=== PATIENT | male | born 1955 | race Caucasian/White ===

== ENCOUNTER → 2016-11-10 | Outpatient (CLI) | payer MEDICAID | LOC: FIMAGING 15:18 | PROVIDERS: ATTEND Orthopaedic Surgery Sports Medicine | DX: I82.491 Acute embolism and thrombosis of other specified deep vein of right lower extremity (principal) ==

== ENCOUNTER → 2016-11-28 | Outpatient (CLI) | payer MEDICAID ==
[~2016-11-28] MED LIST: IOPAMIDOL (ISOVUE 370) 100 ML BTL IV ONE
== END ==
LOC: FIMAGING 08:37
PROVIDERS: ATTEND Physician Assistant
DX: B18.2 Chronic viral hepatitis C (principal); K80.20 Calculus of gallbladder without cholecystitis without obstruction; J98.09 Other diseases of bronchus, not elsewhere classified
CPT/HCPCS: Q9967

== ENCOUNTER 2016-12-15 11:47 | Emergency (ER) | payer MEDICAID ==
[2016-12-15 12:31] LABS: % IMMATURE GRANULYOCYTES 0.5 % (0.0-1.1); ABSOLUTE IMMATURE GRANULOCYTES 0.06 10^3/uL (0.00-0.10); ADD DIFF? NO; ADD MORPH? NO; ADD SCAN? NO; ATYPICAL LYMPHOCYTE FLAG 0 (0-99); FRAGMENT RBC FLAG 0 (0-99); HEMATOCRIT 42.9 % (40.0-51.0); HEMOGLOBIN 13.9 g/dL (13.7-17.5); LEFT SHIFT FLG 0 (0-99); LIPEMIA HEMOLYSIS FLAG 80 (0-99); MEAN CELL HEMOGLOBIN 28.3 pg (27.9-34.1); MEAN CELL HEMOGLOBIN CONCENTR. 32.4 g/dL (32.4-36.7); MEAN CELL VOLUME 87.2 fL (81.5-99.8); MEAN PLATELET VOLUME 9.5 fL (8.7-11.7); PLATELET CLUMPS FLAG 0 (0-99); PLATELET COUNT 313 10^3/uL (150-400); RED BLOOD CELL COUNT 4.92 10^6/uL (4.40-6.38); RED CELL DISTRIBUTION WIDTH 15.9 % (11.5-15.2)
--- NOTE | 2016-12-15 12:32 | EDPHY ---
H & P Stated Complaint: Coughed up blood this morning;on coumadin;hx PEs Time Seen by Provider: 12/15/16 12:31 HPI/ROS: CHIEF COMPLAINT: Hemoptysis HISTORY OF PRESENT ILLNESS: The patient presents to the ED with a 1 day history of scant hemoptysis. The patient reports he has been sick with an upper respiratory infection for the past several days. The patient is currently on Coumadin for a DVT in his leg. He has been on Coumadin for approximately 2 weeks. The patient did have a CT scan of his chest after his diagnosis of DVT which demonstrated no evidence of pulmonary emboli. The patient did report a history of a fever at home several days ago. The patient denies any abdominal pain, vomiting or diarrhea. He denies significant dyspnea. He has no history of exertional chest pain. REVIEW OF SYSTEMS: A comprehensive 10 point review of systems is otherwise negative aside from elements mentioned in the history of present illness. Source: Patient Exam Limitations: No limitations - Personal History Current Tetanus Diphtheria and Acellular Pertussis (TDAP): Yes - Medical/Surgical History Hx Asthma: No Hx Chronic Respiratory Disease: No Hx Diabetes: No Hx Cardiac Disease: No Hx Renal Disease: No Hx Cirrhosis: No Hx Alcoholism: No Hx HIV/AIDS: No Hx Splenectomy or Spleen Trauma: No Other PMH: arthritis. thyroid. PS. PEs - Social History Smoking Status: Former smoker - Physical Exam Exam: General Appearance: Alert, no distress Eyes: Pupils equal and round no pallor or injection ENT, Mouth: Mucous membranes moist Respiratory: There are no retractions, lungs are clear to auscultation Cardiovascular: Regular rate and rhythm Gastrointestinal: Abdomen is soft and nontender, no masses, bowel sounds normal Neurological: A&O, normal motor function, normal sensory exam, normal cranial nerves Skin: Warm and dry, no rashes Musculoskeletal: Neck is supple nontender Extremities: symmetrical, full range of motion Constitutional: Initial Vital Signs Temperature (C) 36.4 C 12/15/16 11:48 Heart Rate 98 12/15/16 11:48 Respiratory Rate 16 12/15/16 11:48 Blood Pressure 134/81 H 12/15/16 11:48 O2 Sat (%) 94 12/15/16 11:48 O2 Delivery Mode Room Air Allergies/Adverse Reactions: acetaminophen Allergy (Mild, Verified 12/15/16 11:48) Rash Home Medications: Medication Instructions Recorded Bupropion HCl [Wellbutrin Xl] 300 mg PO DAILY 11/16/15 Ipratropium/Albuterol [Combivent 1 inh IH BID 11/16/15 Respimat Inhal Cushing(*)] Levothyroxine [Synthroid 125 mcg 125 mcg PO DAILY06 11/16/15 (*)] Albuterol [Ventolin Hfa Inhaler] 2 puffs IH QID PRN #1 mdi 12/15/16 Amoxicillin/Clavulanate Pot 875 mg PO BID #20 tab 12/15/16 [Augmentin 875 mg tablet] Melatonin [Melatonin 3 MG (*)] 3 mg PO HS 12/15/16 Warfarin Sodium [Coumadin 5MG (*)] 5 mg PO DAILY16 12/15/16 Medical Decision Making - Diagnostics Imaging Results: Imaging Impressions Chest X-Ray 12/15/16 12:27 Impression: 1. Moderate left lower lobe pneumonia. ED Course/Re-evaluation: I reviewed the patient's past medical records. The patient had a CT scan performed approximately 2 weeks ago which demonstrated no evidence of a PE. The patient has scant hemoptysis in the setting of an upper respiratory infection. The patient's chest x-ray does demonstrate evidence of pneumonia. The patient is afebrile, non hypoxemic non tachycardic and normotensive. The patient is appropriate for outpatient management. The patient will be started on Augmentin. He does understand to return to the ED for markedly worsening symptoms or other concerns. The patient can continue his regular outpatient dose of Coumadin given his mild hemoptysis. Differential Diagnosis: Differential diagnosis considered includes supratherapeutic anticoagulation, pneumonia, pulmonary embolism, bronchitis - Data Points Laboratory Results: Laboratory Results 12/15/16 12:15 12/15/16 12:15 12/15/16 12/15/16 12/15/16 12:15 12:15 12:15 WBC 13.04 10^3/uL H 10^3/uL (3.80-9.50) RBC 4.92 10^6/uL 10^6/uL (4.40-6.38) Hgb 13.9 g/dL g/dL (13.7-17.5) Hct 42.9 % % (40.0-51.0) MCV 87.2 fL fL (81.5-99.8) MCH 28.3 pg pg (27.9-34.1) MCHC 32.4 g/dL g/dL (32.4-36.7) RDW 15.9 % H % (11.5-15.2) Plt Count 313 10^3/uL 10^3/uL (150-400) MPV 9.5 fL fL (8.7-11.7) Neut % (Auto) 81.9 % H % (39.3-74.2) Lymph % (Auto) 7.4 % L % (15.0-45.0) [place] % (Auto) 7.6 % % (4.5-13.0) Eos % (Auto) 2.1 % % (0.6-7.6) Baso % (Auto) 0.5 % % (0.3-1.7) Nucleat RBC Rel Count 0.0 % % (0.0-0.2) Absolute Neuts (auto) 10.69 10^3/uL H 10^3/uL (1.70-6.50) Absolute Lymphs (auto) 0.96 10^3/uL L 10^3/uL (1.00-3.00) Absolute Monos (auto) 0.99 10^3/uL H 10^3/uL (0.30-0.80) Absolute Eos (auto) 0.27 10^3/uL 10^3/uL (0.03-0.40) Absolute Basos (auto) 0.07 10^3/uL 10^3/uL (0.02-0.10) Absolute Nucleated RBC 0.00 10^3/uL 10^3/uL (0-0.01) Immature Gran % 0.5 % % (0.0-1.1) Immature Gran # 0.06 10^3/uL 10^3/uL (0.00-0.10) PT 26.6 SEC H SEC (12.0-15.0) INR 2.42 H (0.83-1.16) Sodium 140 mEq/L mEq/L (134-144) Potassium 4.1 mEq/L mEq/L (3.5-5.2) Chloride 100 mEq/L mEq/L (97-110) Carbon Dioxide 28 mEq/l mEq/l (22-31) Anion Gap 12 mEq/L mEq/L (8-16) BUN 16 mg/dL mg/dL (7-23) Creatinine 1.0 mg/dL mg/dL (0.7-1.3) Estimated GFR > 60 Glucose 107 mg/dL H mg/dL (70-100) Calcium 9.1 mg/dL mg/dL (8.5-10.4) Total Bilirubin 1.1 mg/dL mg/dL (0.1-1.4) AST 42 IU/L IU/L (17-59) ALT 62 IU/L IU/L (21-72) Alkaline Phosphatase 100 IU/L IU/L (38-126) Total Protein 7.4 g/dL g/dL (6.3-8.2) Albumin 4.0 g/dL g/dL (3.5-5.0) Departure - Departure Disposition: Home, Routine, Self-Care Clinical Impression: Pneumonia Condition: Good Instructions: Community Acquired Pneumonia (ED) Additional Instructions: 1. Please continue your regular medications. Please begin Augmentin for pneumonia. 2. Please follow up as scheduled with your primary care provider. 3. Please return to the ED for markedly worsening symptoms, difficulty breathing , significant increase in the blood in your sputum or other concerns. 4. Please use albuterol inhaler up to every 4 hours as needed. Referrals: Maame Davis [Primary Care Provider] - As per Instructions
[2016-12-15 12:40] LABS: ALANINE AMINOTRANSFERASE 62 IU/L (21-72); ALKALINE PHOSPHATASE 100 IU/L (38-126); ASPARTATE AMINOTRANSFERASE 42 IU/L (17-59); BILIRUBIN,TOTAL 1.1 mg/dL (0.1-1.4); CALCIUM 9.1 mg/dL (8.5-10.4); CARBON DIOXIDE 28 mEq/l (22-31); CHLORIDE 100 mEq/L (97-110); GLOMERULAR FILTRATION RATE > 60; GLUCOSE 107 mg/dL (70-100); INR 2.42 (0.83-1.16); PROTIME(PATIENT) 26.6 SEC (12.0-15.0); SODIUM 140 mEq/L (134-144); TOTAL PROTEIN 7.4 g/dL (6.3-8.2)
[2016-12-15 12:53] LABS: ANION GAP 12 mEq/L (8-16); POTASSIUM 4.1 mEq/L (3.5-5.2)
[2016-12-15 13:17] VITALS: RESP 18; O2SAT 92
[2016-12-15 13:48] VITALS: BP 133/82; PULSE 81; TEMP 97.7
== END 2016-12-15 13:48 | disposition home or self-care (01) ==
DX: J18.9 Pneumonia, unspecified organism (principal); Z79.01 Long term (current) use of anticoagulants; Z87.891 Personal history of nicotine dependence

== ENCOUNTER 2017-01-06 05:05 | Observation (INO) | payer MEDICAID ==
[2017-01-06] MEDS ORDERED: LIDOCAINE 1% 2 ML INJ ONE (06:18)
[2017-01-06] MEDS ORDERED: LR 1,000 ML IV ONE (06:20)
[2017-01-06] MEDS ORDERED: LIDOCAINE 1% 5 ML SDV ID PRN (06:20)
[2017-01-06 06:56] LABS: INR 2.28 (0.83-1.16); PROTIME(PATIENT) 25.3 SEC (12.0-15.0)
[2017-01-06] MEDS ORDERED: MIDAZOLAM 2 MG/2 ML VIAL ONE (07:06)
[2017-01-06] MEDS ORDERED: fentaNYL 100 MCG/2 ML INJ ONE ×3 (07:12→10:18)
[2017-01-06] MEDS ORDERED: PROPOFOL 200 MG/20 ML VIAL ONE ×2 (07:12→08:03)
[2017-01-06] MEDS ORDERED: LIDO/EPI 1% **Not for Epidural 20 ML MDV ONE (07:13)
[2017-01-06] MEDS ORDERED: LIDOCAINE 2% 5 ML SDV ONE (07:14)
[2017-01-06] MEDS ORDERED: ROCURONIUM 50 MG/5 ML VIAL ONE (07:14)
[2017-01-06] MEDS ORDERED: DEXAMETHASONE 4 MG/ML VIAL ONE (07:45)
[2017-01-06] MEDS ORDERED: RANITIDINE 50 MG/2 ML VIAL ONE (09:24)
[2017-01-06] MEDS ORDERED: ONDANSETRON 4 MG/2 ML VIAL ONE (09:26)
[2017-01-06] MEDS ORDERED: SUGAMMADEX SODIUM 200 MG/2 ML VIAL IVP ONE (09:26)
--- NOTE | 2017-01-06 09:35 | POSTOPPROG ---
Post Op Note Date of Operation: 01/06/17 Surgeon: Philippe Spear Anesthesia: GET(General Endotracheal) Pre-op Diagnosis: L TM Perforation Post-op Diagnosis: L TM Perforation Indication: L TM Perforation Procedure: LEFT TYMPANOPLASTY Findings: 40% perf Inf/Abcess present in the surg proc area at time of surgery?: No Depth: Deep Incisional (Fascial) EBL: 50-100 Complications: NONE Specimen(s): NONE
[2017-01-06] MEDS: oxyCODONE IR 5 MG TAB PO PRN ×2 (10:48→19:32)
[2017-01-06] MEDS: HEPARIN 5,000 UNIT/0.5 ML SYR SC SCH ×2 (14:44→21:08)
--- NOTE | 2017-01-06 19:53 | GOP ---
[f rep st] OPERATIVE REPORT DATE OF OPERATION: 01/06/2017 SURGEON: Philippe Spear MD ANESTHESIA: General. PREOPERATIVE DIAGNOSIS: Left tympanic membrane perforation. POSTOPERATIVE DIAGNOSIS: Left tympanic membrane perforation. PROCEDURE PERFORMED: Tympanoplasty with underlay cartilage graft. FINDINGS: A 40% anterior central tympanic membrane perforation. SPECIMENS: None. ESTIMATED BLOOD LOSS: 2 mL. DESCRIPTION OF PROCEDURE: The patient was brought to the operating room by Anesthesiology and place d on the operating table. Once the appropriate level of anesthesia was achieved, a 27-gauge needle was used to inject 1% lidocaine with 1:100,000 epinephrine into the postauricular soft tissues and c ircumferentially in the ear canal. The patient was then prepped and draped in the usual fashion. T he table was turned 90 degrees. Binocular operating microscope was brought onto the surgical field. A speculum was placed atraumatically in the left ear canal. Cerumen was removed with suction. A Mcfarland needle was used to create circumferential perforations around the tympanic membrane perforatio n. The edges were then freshened by removing tissue circumferentially with an alligator. The horiz ontal and vertical portions of the tympanomeatal flap incisions were created with needle-tip Bovie e lectrocautery. Horizontal incisions were made at 6 and 12. The flap was elevated with a Ford eleva tor until the anulus was encountered. The Anulus was elevated with Ford elevator and drum elevator. This was elevated anteriorly. The chorda tympani was not visualized. The ossicles appeared in pl chuckie, and on palpation with the Mcfarland needle, were found to be intact with good apparent movement of the stapes. The flap was elevated and placed anteriorly. Given the size of the perforation, he was deemed appropriate for a cartilage graft tympanoplasty. A #15 blade was used to create an incision at the ear canal portion of the tragus. Dissection of the deep tragal cartilage was continued with Nathan Brown forceps and a scissors. Cartilage was removed after being freed from surrounding soft tissue. This was placed aside. The graft site was inspected for bleeding. None was found. Two 4- 0 chromic interrupted sutures were used to close that incision. The graft was then measured against measurements of the perforation and it was cut and prepared appropriately. The middle ear was ligh tly packed with ofloxacin-soaked Gelfoam pieces. Once this was accomplished, the cartilage graft wa s laid beneath the Gelfoam and under the perforation. The tympanomeatal flap was laid back in place . There was good coverage of the perforation by the cartilage graft. Following this, Floxin-soaked Gelfoam pieces were then placed in the ear canal. This was covered by bacitracin. A cotton ball w as then placed. The cotton ball was taped in place. The patient tolerated the procedure well and w as extubated in the operating room prior to being transferred in good condition to the postanesthesi a care unit. COMPLICATIONS: None. OPERATIVE INDICATIONS: The patient was seen in the outpatient clinic and found to have a long-stand ing left tympanic membrane perforation following removal of ventilation tube. He did have some cond uctive hearing loss associated with this. Given his history and findings, he was determined to be a n appropriate candidate for the above-stated procedures. The risks, benefits, and alternatives to t he procedures were explained at length to the patient who stated he understood and agreed. /[id number]/MODL
[2017-01-07 04:56] VITALS: RESP 18
[2017-01-07] MEDS: oxyCODONE IR 5 MG TAB PO PRN (05:15)
[2017-01-07] MEDS: HEPARIN 5,000 UNIT/0.5 ML SYR SC SCH (05:16)
[2017-01-07 08:43] VITALS: BP 120/65; PULSE 84; TEMP 98; O2SAT 90
--- NOTE | 2017-01-07 08:52 | SOAPPROG ---
SOAP Progress Note Assessment/Plan: Assessment: Good post op findings. Plan: Okay for discharge. Discharge instructions provided in chart. Follow up in 1 week. Keep ear dry. No bending, lifting, straining. No nose blowing. Sneeze with open mouth. 01/07/17 08:49 Subjective: No complaints. Post op pain reasonably controlled. Objective: Vital Signs Temp Pulse Resp BP Pulse Ox 36.7 C 84 18 120/65 90 L 01/07/17 08:00 01/07/17 08:00 01/07/17 08:00 01/07/17 08:00 01/07/17 08:00 01/06/17 01/07/17 01/08/17 05:59 05:59 05:59 Intake Total 2050 Output Total 505 Balance 1545 PT 25.3 SEC (12.0-15.0) H 01/06/17 06:30 INR 2.28 (0.83-1.16) H 01/06/17 06:30 Physical Exam - Physical Exam General Appearance: WD/WN, alert, no apparent distress EENT: normal ENT inspection (Packing in place at LEFT ear.) Neck: non-tender, normal inspection Skin: normal color, warm/dry Neuro/Psych: no motor/sensory deficits, alert, normal mood/affect ICD10 Worksheet Patient Problems: Problems Problem Status Onset Pneumonia Acute
== END 2017-01-07 09:54 | disposition home or self-care (01) ==
LOC: F3E 05:05
PROVIDERS: ADMIT Otolaryngology; ATTEND Otolaryngology
DX: H72.92 Unspecified perforation of tympanic membrane, left ear (principal); H90.6 Mixed conductive and sensorineural hearing loss, bilateral; H69.83 Other specified disorders of Eustachian tube, bilateral; Z86.69 Personal history of other diseases of the nervous system and sense organs; Z87.891 Personal history of nicotine dependence
CPT/HCPCS: 69620; G0378; J0171; J1100; J2250; J2405; J2704; J2780; J3010

== ENCOUNTER 2017-01-25 19:14 | Emergency (ER) | payer MEDICAID ==
[2017-01-25 19:29] VITALS: O2SAT 93
[2017-01-25] MEDS ORDERED: IPRATROPIUM/ALBUTEROL 3 ML DEYVIAL IH ONE (19:51)
[2017-01-25] MEDS ORDERED: NS 1,000 ML IV ONE ×3 (19:51→21:18)
[2017-01-25] MEDS ORDERED: ALBUTEROL 3 ML DEYVIAL IH ONE (19:51)
--- NOTE | 2017-01-25 19:53 | EDPHY ---
H & P Time Seen by Provider: 01/25/17 19:44 HPI/ROS: CHIEF COMPLAINT: Right ear pain, cough, and shortness of breath HISTORY OF PRESENT ILLNESS: Patient is a history of multiple your infection and had ear tubes as child. He had left tympanic membrane repair by Dr. Spear on January 06 of this year. Patient presents with 3 days of myalgias and right ear pain with dizziness and productive cough and shortness of breath. Cough and shortness of breath is moderate. Not associated with hemoptysis or leg swelling. No chest pain. Not productive. REVIEW OF SYSTEMS: Eye: no change in vision ENT: no sore throat, right earache without drainage Cardiac: no chest pain or syncope Pulmonary: HPI Abdomen: no vomiting, diarrhea, abdominal pain Musculoskeletal: no back pain Skin: no rash Neuro: Mild headache Constitutional: Fever and chills : no urinary symptoms A comprehensive 10 point review of systems is otherwise negative aside from elements mentioned in the history of present illness. PAST MEDICAL HISTORY: Bilateral knee replacements, psoriatic arthritis, hypothyroid, DVT Social history: Nonsmoker General Appearance: Alert and conversant, cooperative. Eyes: No scleral icterus. ENT, Mouth: Normal mucous membranes. Right tympanic membrane is red and retracted. Left is not red, visualization limited because of recent sutures from tympanic membrane repair. No swelling on the mastoid. Respiratory: Bilateral wheezes and rhonchi, no focal lung sounds. Cardiovascular: Regular rate and rhythm. Tachycardic without murmur. Gastrointestinal: Abdomen is soft and non tender. Neurological: Alert and oriented x3. Normally conversant. Face symmetric, normal movement and sensation in all extremities. Skin: Warm and dry, no rashes. Musculoskeletal: No peripheral edema and no joint swelling. No calf tenderness. No neck stiffness, no meningeal signs. Psychiatric: Not agitated. Emergency Department course/MDM: Albuterol Atrovent nebulizer, IV normal saline hydration, chest x-ray. Patient will need antibiotics for his right ear infection. 2117: Patient's heart rate down, he is adamant about going home wanting to go to work tomorrow and wants to be discharged Ceftriaxone 1 g IV, oral Augmentin prescribed. Smoking Status: Former smoker Constitutional: Initial Vital Signs Temperature (C) 39 C H 01/25/17 19:24 Heart Rate 102 H 01/25/17 19:24 Respiratory Rate 18 01/25/17 19:24 Blood Pressure 149/78 H 01/25/17 19:24 O2 Sat (%) 93 01/25/17 19:24 O2 Delivery Mode Room Air Allergies/Adverse Reactions: acetaminophen Allergy (Mild, Verified 12/15/16 11:48) Rash Home Medications: Medication Instructions Recorded Bupropion HCl [Wellbutrin Xl] 300 mg PO DAILY 12/30/16 Furosemide [Lasix 20 MG (*)] 20 mg PO DAILY 12/30/16 Levothyroxine [Synthroid 125 mcg 125 mcg PO DAILY06 12/30/16 (*)] Melatonin [Melatonin 5 mg] 10 mg PO HS 12/30/16 Omeprazole 40 mg PO DAILY 12/30/16 Ranitidine HCl [Zantac] 150 mg PO BID 12/30/16 Warfarin Sodium [Coumadin 2.5MG 2.5 mg PO TUTH@16 12/30/16 (*)] Warfarin Sodium [Coumadin 5MG (*)] 5 mg PO SUMOWEFRSA@16 12/30/16 diphenhydrAMINE [Benadryl 50 MG 75 mg PO HS 12/30/16 (*)] oxyCODONE IR [Oxycodone Ir (*)] 10 mg PO HS PRN 12/30/16 Amoxicillin/Clavulanate Pot 875 mg PO BID #20 tab 01/25/17 [Augmentin 875 mg tab] Medical Decision Making - Diagnostics Imaging Results: Imaging Impressions Chest X-Ray 01/25/17 19:51 Impression: Decreased infiltrate in the left lower lobe from November 20162016. Otherwise negative. - Data Points Laboratory Results: Laboratory Results 01/25/17 20:05 01/25/17 20:05 01/25/17 01/25/17 20:05 20:05 WBC 14.94 10^3/uL H 10^3/uL (3.80-9.50) RBC 4.63 10^6/uL 10^6/uL (4.40-6.38) Hgb 13.1 g/dL L g/dL (13.7-17.5) Hct 39.8 % L % (40.0-51.0) MCV 86.0 fL fL (81.5-99.8) MCH 28.3 pg pg (27.9-34.1) MCHC 32.9 g/dL g/dL (32.4-36.7) RDW 15.6 % H % (11.5-15.2) Plt Count 304 10^3/uL 10^3/uL (150-400) MPV 9.6 fL fL (8.7-11.7) Neut % (Auto) 79.1 % H % (39.3-74.2) Lymph % (Auto) 9.9 % L % (15.0-45.0) [place] % (Auto) 9.3 % % (4.5-13.0) Eos % (Auto) 0.5 % L % (0.6-7.6) Baso % (Auto) 0.4 % % (0.3-1.7) Nucleat RBC Rel Count 0.0 % % (0.0-0.2) Absolute Neuts (auto) 11.82 10^3/uL H 10^3/uL (1.70-6.50) Absolute Lymphs (auto) 1.48 10^3/uL 10^3/uL (1.00-3.00) Absolute Monos (auto) 1.39 10^3/uL H 10^3/uL (0.30-0.80) Absolute Eos (auto) 0.07 10^3/uL 10^3/uL (0.03-0.40) Absolute Basos (auto) 0.06 10^3/uL 10^3/uL (0.02-0.10) Absolute Nucleated RBC 0.00 10^3/uL 10^3/uL (0-0.01) Immature Gran % 0.8 % % (0.0-1.1) Immature Gran # 0.12 10^3/uL H 10^3/uL (0.00-0.10) Sodium 141 mEq/L mEq/L (134-144) Potassium 3.9 mEq/L mEq/L (3.5-5.2) Chloride 105 mEq/L mEq/L (97-110) Carbon Dioxide 23 mEq/l mEq/l (22-31) Anion Gap 13 mEq/L mEq/L (8-16) BUN 16 mg/dL mg/dL (7-23) Creatinine 1.0 mg/dL mg/dL (0.7-1.3) Estimated GFR > 60 Glucose 88 mg/dL mg/dL (70-100) Calcium 9.0 mg/dL mg/dL (8.5-10.4) Medications Given: Discontinued Medications Albuterol (Proventil Neb) 3 ml IH EDNOW ONE Stop: 01/25/17 19:52 Last Admin: 01/25/17 20:08 Dose: 3 ml Albuterol/Ipratropium (Duoneb) 3 ml IH EDNOW ONE Stop: 01/25/17 19:52 Last Admin: 01/25/17 20:09 Dose: 3 ml Sodium Chloride (Ns) 1,000 mls @ 0 mls/hr IV ONCE ONE; Wide Open PRN Reason: Protocol Stop: 01/25/17 19:52 Last Admin: 01/25/17 20:08 Dose: 1,000 mls Sodium Chloride (Ns) 1,000 mls @ 0 mls/hr IV ONCE ONE; Wide Open PRN Reason: Protocol Stop: 01/25/17 20:52 Last Admin: 01/25/17 21:04 Dose: 1,000 mls Ceftriaxone Sodium/Dextrose (Rocephin 1 Gm (Premix)) 50 mls @ 100 mls/hr IV EDNOW ONE PRN Reason: Protocol Stop: 01/25/17 21:47 Last Admin: 01/25/17 21:35 Dose: 50 mls Sodium Chloride (Ns) 1,000 mls @ 0 mls/hr IV ONCE ONE; Wide Open PRN Reason: Protocol Stop: 01/25/17 21:19 Last Admin: 01/25/17 21:55 Dose: 1,000 mls Ibuprofen (Motrin) 800 mg PO EDNOW ONE Stop: 01/25/17 20:50 Last Admin: 01/25/17 20:55 Dose: 800 mg Departure - Departure Disposition: Home, Routine, Self-Care Clinical Impression: Otitis media Qualifiers: Otitis media type: allergic Chronicity: acute Laterality: right Recurrence: not specified as recurrent Qualified Code(s): H65.111 - Acute and subacute allergic otitis media (mucoid) (sanguinous) (serous), right ear Condition: Good Instructions: Otitis Media (ED) Referrals: Maame Davis [Primary Care Provider] - As per Instructions Prescriptions: Amoxicillin/Clavulanate Pot [Augmentin 875 mg tab] 875 mg PO BID #20 tab
[2017-01-25 20:15] LABS: % IMMATURE GRANULYOCYTES 0.8 % (0.0-1.1); ABSOLUTE IMMATURE GRANULOCYTES 0.12 10^3/uL (0.00-0.10); ADD DIFF? NO; ADD MORPH? NO; ADD SCAN? NO; ATYPICAL LYMPHOCYTE FLAG 0 (0-99); FRAGMENT RBC FLAG 0 (0-99); HEMATOCRIT 39.8 % (40.0-51.0); HEMOGLOBIN 13.1 g/dL (13.7-17.5); LEFT SHIFT FLG 0 (0-99); LIPEMIA HEMOLYSIS FLAG 80 (0-99); MEAN CELL HEMOGLOBIN 28.3 pg (27.9-34.1); MEAN CELL HEMOGLOBIN CONCENTR. 32.9 g/dL (32.4-36.7); MEAN PLATELET VOLUME 9.6 fL (8.7-11.7); PLATELET CLUMPS FLAG 10 (0-99); PLATELET COUNT 304 10^3/uL (150-400); RED BLOOD CELL COUNT 4.63 10^6/uL (4.40-6.38); RED CELL DISTRIBUTION WIDTH 15.6 % (11.5-15.2)
[2017-01-25 20:31] LABS: ANION GAP 13 mEq/L (8-16); CARBON DIOXIDE 23 mEq/l (22-31); CHLORIDE 105 mEq/L (97-110); GLOMERULAR FILTRATION RATE > 60; GLUCOSE 88 mg/dL (70-100); POTASSIUM 3.9 mEq/L (3.5-5.2); SODIUM 141 mEq/L (134-144)
[2017-01-25] MEDS ORDERED: IBUPROFEN 200 MG TAB PO ONE (20:49)
[2017-01-25 22:21] VITALS: BP 111/60; PULSE 95; RESP 18; TEMP 99.1
== END 2017-01-25 22:21 | disposition home or self-care (01) ==
DX: H65.111 Acute and subacute allergic otitis media (mucoid) (sanguinous) (serous), right ear (principal); Z79.01 Long term (current) use of anticoagulants; Z87.891 Personal history of nicotine dependence
CPT/HCPCS: 96365; J0696

== ENCOUNTER 2017-01-28 13:16 | Emergency (ER) | payer MEDICAID ==
[2017-01-28] MEDS ORDERED: IPRATROPIUM/ALBUTEROL 3 ML DEYVIAL IH ONE (14:41)
--- NOTE | 2017-01-28 14:45 | EDPHY ---
H & P Time Seen by Provider: 01/28/17 14:35 HPI/ROS: CHIEF COMPLAINT: Coughing up blood HISTORY OF PRESENT ILLNESS: Patient was seen by myself on January 25 with symptoms of cough and right ear infection. He is currently on Augmentin. He presents today because he has been coughing up streaks of blood occasionally for the last 2 days, still on warfarin with an INR last week of greater than 3. Coughing is mild to moderate. He does have a nebulizer at home for chronic reactive airway disease and recurrent pneumonia. Not associated with leg swelling or chest pain. His cough and his earache are improving but slowly. REVIEW OF SYSTEMS: Eye: no change in vision ENT: Does have some decreased hearing in his left ear after ear tube surgery last month, and some decreased hearing in the right ear with his current otitis. Cardiac: no chest pain or syncope Pulmonary: HPI, not currently short of breath Abdomen: no vomiting, diarrhea, abdominal pain Musculoskeletal: no back pain Skin: no rash Neuro: no headache Constitutional: no fever or chills : no urinary symptoms A comprehensive 10 point review of systems is otherwise negative aside from elements mentioned in the history of present illness. PAST MEDICAL HISTORY: Includes psoriatic arthritis with bilateral knee arthroplasties, thyroid, DVT and PE. Social history: Nonsmoker General Appearance: Alert and conversant, cooperative. Eyes: No scleral icterus. ENT, Mouth: Left tympanic membrane shows scarring, right tympanic membrane is still red and slightly retracted. Respiratory: Speaks in full sentences, no rhonchi, occasional scattered bilateral expiratory wheezing. Cardiovascular: Regular rate and rhythm. Gastrointestinal: Abdomen is soft and non tender. Neurological: Alert and oriented x3. Normally conversant. Face symmetric, normal movement and sensation in all extremities. Skin: Warm and dry, no rashes. No petechiae or purpura. Musculoskeletal: No peripheral edema and no joint swelling. No calf tenderness. Psychiatric: Not agitated. Emergency Department course/MDM: Most likely has hemoptysis due to URI or pneumonia and coughing on warfarin. Plan for DuoNeb, chest x-ray, labs to include INR. Vital signs reviewed, not tachycardic and afebrile with normal oxygen saturation. I reviewed his x-ray, I think it looks similar to last time he was here. Patient is clinically slowly improving. He is advised to not take his usual Coumadin dose tonight, restart tomorrow and contact his primary care physician on Monday. I think pulmonary embolism is unlikely. He is afebrile with reasonable oxygen saturations, not tachycardic or tachypneic. Patient states he is comfortable with being discharged to continue his antibiotics. Smoking Status: Former smoker Constitutional: Initial Vital Signs Temperature (C) 36.4 C 01/28/17 13:20 Heart Rate 86 01/28/17 13:20 Respiratory Rate 20 01/28/17 13:20 Blood Pressure 166/89 H 01/28/17 13:20 O2 Sat (%) 94 01/28/17 13:20 O2 Delivery Mode Room Air Allergies/Adverse Reactions: acetaminophen Allergy (Mild, Verified 01/28/17 13:19) Rash Home Medications: Medication Instructions Recorded Bupropion HCl [Wellbutrin Xl] 300 mg PO DAILY 12/30/16 Furosemide [Lasix 20 MG (*)] 20 mg PO DAILY 12/30/16 Levothyroxine [Synthroid 125 mcg 125 mcg PO DAILY06 12/30/16 (*)] Melatonin [Melatonin 5 mg] 10 mg PO HS 12/30/16 Omeprazole 40 mg PO DAILY 12/30/16 Ranitidine HCl [Zantac] 150 mg PO BID 12/30/16 Warfarin Sodium [Coumadin 2.5MG 2.5 mg PO TUTH@16 12/30/16 (*)] Warfarin Sodium [Coumadin 5MG (*)] 5 mg PO SUMOWEFRSA@16 12/30/16 diphenhydrAMINE [Benadryl 50 MG 75 mg PO HS 12/30/16 (*)] oxyCODONE IR [Oxycodone Ir (*)] 10 mg PO HS PRN 12/30/16 Amoxicillin/Clavulanate Pot 875 mg PO BID #20 tab 01/25/17 [Augmentin 875 mg tab] STELARA 01/28/17 Medical Decision Making - Diagnostics Imaging Results: Imaging Impressions Chest X-Ray 01/28/17 14:41 Impression: Left lower lobe pneumonia. Findings and recommendations discussed with Emergency Department physician, Dr. Clifton العلي at 15:47 hour, 01/28/2017. Final report concurs with initial preliminary interpretation. Differential Diagnosis: Differential for hemoptysis considered including but not limited to pulmonary embolism, pneumonia, coagulopathy, Adela-Richter. - Data Points Laboratory Results: Laboratory Results 01/28/17 14:50 01/28/17 14:50 01/28/17 01/28/17 01/28/17 14:50 14:50 14:50 WBC 6.98 10^3/uL D 10^3/uL (3.80-9.50) RBC 4.56 10^6/uL 10^6/uL (4.40-6.38) Hgb 13.0 g/dL L g/dL (13.7-17.5) Hct 39.4 % L % (40.0-51.0) MCV 86.4 fL fL (81.5-99.8) MCH 28.5 pg pg (27.9-34.1) MCHC 33.0 g/dL g/dL (32.4-36.7) RDW 15.2 % % (11.5-15.2) Plt Count 342 10^3/uL 10^3/uL (150-400) MPV 9.6 fL fL (8.7-11.7) Neut % (Auto) 62.7 % % (39.3-74.2) Lymph % (Auto) 20.1 % % (15.0-45.0) [place] % (Auto) 11.9 % % (4.5-13.0) Eos % (Auto) 4.6 % % (0.6-7.6) Baso % (Auto) 0.6 % % (0.3-1.7) Nucleat RBC Rel Count 0.0 % % (0.0-0.2) Absolute Neuts (auto) 4.38 10^3/uL 10^3/uL (1.70-6.50) Absolute Lymphs (auto) 1.40 10^3/uL 10^3/uL (1.00-3.00) Absolute Monos (auto) 0.83 10^3/uL H 10^3/uL (0.30-0.80) Absolute Eos (auto) 0.32 10^3/uL 10^3/uL (0.03-0.40) Absolute Basos (auto) 0.04 10^3/uL 10^3/uL (0.02-0.10) Absolute Nucleated RBC 0.00 10^3/uL 10^3/uL (0-0.01) Immature Gran % 0.1 % % (0.0-1.1) Immature Gran # 0.01 10^3/uL 10^3/uL (0.00-0.10) PT 35.8 SEC H SEC (12.0-15.0) INR 3.51 H (0.83-1.16) Sodium 138 mEq/L mEq/L (134-144) Potassium 3.9 mEq/L mEq/L (3.5-5.2) Chloride 104 mEq/L mEq/L (97-110) Carbon Dioxide 24 mEq/l mEq/l (22-31) Anion Gap 10 mEq/L mEq/L (8-16) BUN 11 mg/dL mg/dL (7-23) Creatinine 0.9 mg/dL mg/dL (0.7-1.3) Estimated GFR > 60 Glucose 97 mg/dL mg/dL (70-100) Calcium 9.3 mg/dL mg/dL (8.5-10.4) Medications Given: Discontinued Medications Albuterol/Ipratropium (Duoneb) 3 ml IH EDNOW ONE Stop: 01/28/17 14:42 Last Admin: 01/28/17 14:53 Dose: 3 ml Departure - Departure Disposition: Home, Routine, Self-Care Clinical Impression: Otitis media of right ear Qualifiers: Otitis media type: unspecified Chronicity: unspecified Qualified Code(s): H66.91 - Otitis media, unspecified, right ear Pneumonia Qualifiers: Pneumonia type: due to unspecified organism Laterality: left Lung location: lower lobe of lung Qualified Code(s): J18.1 - Lobar pneumonia, unspecified organism Condition: Good Instructions: Otitis Media (ED), Bacterial Pneumonia (ED) Additional Instructions: Please do not take your Coumadin dose tonight. Resume her normal dosing tomorrow. Continue other medications including antibiotics as prescribed. Referrals: Maame Davis [Primary Care Provider] - As per Instructions
[2017-01-28 15:02] LABS: % IMMATURE GRANULYOCYTES 0.1 % (0.0-1.1); ABSOLUTE IMMATURE GRANULOCYTES 0.01 10^3/uL (0.00-0.10); ADD DIFF? NO; ADD MORPH? NO; ADD SCAN? NO; ATYPICAL LYMPHOCYTE FLAG 20 (0-99); FRAGMENT RBC FLAG 0 (0-99); HEMATOCRIT 39.4 % (40.0-51.0); LEFT SHIFT FLG 0 (0-99); LIPEMIA HEMOLYSIS FLAG 80 (0-99); MEAN CELL HEMOGLOBIN 28.5 pg (27.9-34.1); MEAN CELL VOLUME 86.4 fL (81.5-99.8); MEAN PLATELET VOLUME 9.6 fL (8.7-11.7); PLATELET CLUMPS FLAG 0 (0-99); PLATELET COUNT 342 10^3/uL (150-400); RED BLOOD CELL COUNT 4.56 10^6/uL (4.40-6.38); RED CELL DISTRIBUTION WIDTH 15.2 % (11.5-15.2)
[2017-01-28 15:13] LABS: ANION GAP 10 mEq/L (8-16); CALCIUM 9.3 mg/dL (8.5-10.4); CARBON DIOXIDE 24 mEq/l (22-31); CHLORIDE 104 mEq/L (97-110); CREATININE 0.9 mg/dL (0.7-1.3); GLOMERULAR FILTRATION RATE > 60; GLUCOSE 97 mg/dL (70-100); POTASSIUM 3.9 mEq/L (3.5-5.2); SODIUM 138 mEq/L (134-144)
[2017-01-28 15:29] LABS: INR 3.51 (0.83-1.16); PROTIME(PATIENT) 35.8 SEC (12.0-15.0)
[2017-01-28 16:13] VITALS: BP 114/67; PULSE 84; RESP 17; TEMP 99; O2SAT 93
== END 2017-01-28 16:12 | disposition home or self-care (01) ==
DX: J18.9 Pneumonia, unspecified organism (principal); H66.91 Otitis media, unspecified, right ear; Z79.01 Long term (current) use of anticoagulants; Z87.891 Personal history of nicotine dependence

== ENCOUNTER → 2017-03-01 | Outpatient (CLI) | payer MEDICAID | LOC: FIMAGING 10:49 | PROVIDERS: ATTEND Internal Medicine Hematology & Oncology | DX: R22.41 Localized swelling, mass and lump, right lower limb (principal); B19.20 Unspecified viral hepatitis C without hepatic coma; Z86.718 Personal history of other venous thrombosis and embolism ==

== ENCOUNTER 2017-08-14 17:38 | Emergency (ER) | payer MEDICAID ==
[2017-08-14] MEDS ORDERED: IPRATROPIUM/ALBUTEROL 3 ML DEYVIAL IH ONE (18:11)
[2017-08-14] MEDS ORDERED: NS 500 ML IV ONE (18:11)
[2017-08-14] MEDS ORDERED: methylPREDNISolone SOD SUCC 125 MG/2 ML VIAL IVP ONE (18:11)
--- NOTE | 2017-08-14 18:11 | EDPHY ---
H & P Time Seen by Provider: 08/14/17 17:59 HPI/ROS: CHIEF COMPLAINT: Cough, fever, lightheaded HISTORY OF PRESENT ILLNESS: The patient is a 59-year-old male with a history of psoriatic arthritis on monthly immunosuppression injections. The patient states that on Monday he began with a slight fever and cough. He states his roommate has had URI symptoms. Patient has had frequent pneumonias in the past. He saw Dr. Davis at the [facility]. He was started on Levaquin. No chest x-ray was performed. Dr. Davis called the patient today to check on him and see how he was doing. The patient stated that he had a near syncopal episode after coughing fit. Dr. Davis recommended he be seen in the emergency department. Patient states his cough is nonproductive. He has recurrent coughing fits. He has mild chest discomfort when he coughs. No chest pain at rest. No significant shortness of breath. No abdominal pain. No nausea or vomiting. No headache. No focal weakness or numbness. REVIEW OF SYSTEMS: My complete review of systems is negative except as mentioned in the HPI. Past Medical/Surgical History: Includes psoriatic arthritis, hypothyroidism, DVT, pneumonia Social history: Patient does not smoke Smoking Status: Former smoker Physical Exam: 36.8, 150/90, 90, 20, 96% on room air GENERAL: Well-appearing, in no acute distress, alert. HEENT: Eyes normal to inspection, normal pharynx, no signs of dehydration. NECK: No thyromegaly, no lymphadenopathy, supple. RESPIRATORY: Good air movement bilaterally. Diffuse wheezing. Coughing fit with deep breath. No rales or rhonchi CVS: Regular rate and rhythm, no rubs, murmurs, or gallops. ABDOMEN: Soft, nontender, nondistended, no organomegaly. BACK: Normal to inspection, no CVA tenderness. SKIN: Normal color, no rash, warm, dry. No pallor. EXTREMITIES: No pedal edema, no calf tenderness, no Homans sign or cords, no joint swelling. NEURO/PSYCH: Alert and oriented x3, normal mood and affect, normal motor sensory exam. No obvious cranial nerve deficit. Constitutional: Initial Vital Signs Temperature (C) 36.8 C 08/14/17 17:40 Heart Rate 98 08/14/17 17:40 Respiratory Rate 20 08/14/17 17:40 Blood Pressure 150/90 H 08/14/17 17:40 O2 Sat (%) 96 08/14/17 17:40 O2 Delivery Mode Room Air Allergies/Adverse Reactions: acetaminophen Allergy (Mild, Verified 08/14/17 17:40) Rash Home Medications: Medication Instructions Recorded Bupropion HCl [Wellbutrin Xl] 300 mg PO DAILY 12/30/16 Levothyroxine [Synthroid 125 mcg 125 mcg PO DAILY06 12/30/16 (*)] Melatonin [Melatonin 5 mg] 10 mg PO HS 12/30/16 Omeprazole 40 mg PO DAILY 12/30/16 diphenhydrAMINE [Benadryl 50 MG 75 mg PO HS 12/30/16 (*)] oxyCODONE IR [Oxycodone Ir (*)] 10 mg PO HS PRN 12/30/16 Monthly Inj For Arthritis 08/14/17 predniSONE 20 mg PO DAILY 4 Days tab 08/14/17 Medical Decision Making - Diagnostics Imaging Results: Imaging Impressions Chest X-Ray 08/14/17 18:11 Impression: 1. Mild prominent interstitial markings at the left base is actually improved when compared to the prior studies. This could represent some mild chronic interstitial disease or less likely infiltrate. ED Course/Re-evaluation: In the emergency department I discussed possible etiologies with the patient. I answered all his questions. An IV was placed. Laboratory studies and chest x -ray were ordered. Patient was given a Solu-Medrol 125 mg IV for his wheezing. He was given a DuoNeb. Patient's CBC was normal. Chemistry unremarkable. BNP normal. I rechecked the patient. I discussed all the results. He had no respiratory distress. Kennedy better after receiving the inhaler and steroid. EKG shows normal sinus rhythm, normal rate, normal axis, normal intervals. There are no ST or T-wave abnormalities. EKG is normal as interpreted by me. Influenza B positive. I discussed the results with the patient. I gave him warnings prior to leaving. He will return with worsening symptoms. He has a prescription of prednisone as well as an albuterol inhaler. He was instructed to continue his antibiotics. Differential Diagnosis: My differential includes but is not limited to pneumonia, bronchitis, influenza , reactive airway disease, empyema, allergic reaction - Data Points Laboratory Results: Laboratory Results 08/14/17 18:25 08/14/17 18:25 08/14/17 08/14/17 08/14/17 18:25 18:25 18:25 WBC 4.48 10^3/uL 10^3/uL (3.80-9.50) RBC 4.79 10^6/uL 10^6/uL (4.40-6.38) Hgb 14.3 g/dL g/dL (13.7-17.5) Hct 42.7 % % (40.0-51.0) MCV 89.1 fL fL (81.5-99.8) MCH 29.9 pg pg (27.9-34.1) MCHC 33.5 g/dL g/dL (32.4-36.7) RDW 13.8 % % (11.5-15.2) Plt Count 253 10^3/uL 10^3/uL (150-400) MPV 9.4 fL fL (8.7-11.7) Neut % (Auto) 64.8 % % (39.3-74.2) Lymph % (Auto) 17.6 % % (15.0-45.0) [place] % (Auto) 13.8 % H % (4.5-13.0) Eos % (Auto) 2.7 % % (0.6-7.6) Baso % (Auto) 0.9 % % (0.3-1.7) Nucleat RBC Rel Count 0.0 % % (0.0-0.2) Absolute Neuts (auto) 2.90 10^3/uL 10^3/uL (1.70-6.50) Absolute Lymphs (auto) 0.79 10^3/uL L 10^3/uL (1.00-3.00) Absolute Monos (auto) 0.62 10^3/uL 10^3/uL (0.30-0.80) Absolute Eos (auto) 0.12 10^3/uL 10^3/uL (0.03-0.40) Absolute Basos (auto) 0.04 10^3/uL 10^3/uL (0.02-0.10) Absolute Nucleated RBC 0.00 10^3/uL 10^3/uL (0-0.01) Immature Gran % 0.2 % % (0.0-1.1) Immature Gran # 0.01 10^3/uL 10^3/uL (0.00-0.10) Sodium 139 mEq/L mEq/L (134-144) Potassium 4.3 mEq/L mEq/L (3.5-5.2) Chloride 98 mEq/L mEq/L (97-110) Carbon Dioxide 30 mEq/l mEq/l (22-31) Anion Gap 11 mEq/L mEq/L (8-16) BUN 21 mg/dL mg/dL (7-23) Creatinine 1.2 mg/dL mg/dL (0.7-1.3) Estimated GFR > 60 Glucose 127 mg/dL H mg/dL (70-100) Calcium 9.3 mg/dL mg/dL (8.5-10.4) NT-Pro-B Natriuret Pep 43 pg/mL pg/mL (0-125) Nasal Influenza A PCR NEGATIVE FOR FLU A (NEGATIVE) Nasal Influenza B PCR FLU B DETECTED (NEGATIVE) Medications Given: Discontinued Medications Albuterol/Ipratropium (Duoneb) 3 ml IH EDNOW ONE Stop: 08/14/17 18:12 Last Admin: 08/14/17 18:45 Dose: 3 ml Sodium Chloride (Ns) 500 mls @ 1,000 mls/hr IV EDNOW ONE PRN Reason: Protocol Stop: 08/14/17 18:40 Last Admin: 08/14/17 18:45 Dose: 500 mls Methylprednisolone Sodium Succinate (Solu-Medrol) 125 mg IVP EDNOW ONE Stop: 08/14/17 18:12 Last Admin: 08/14/17 18:45 Dose: 125 mg Departure - Departure Disposition: Home, Routine, Self-Care Clinical Impression: Influenza B Condition: Good Instructions: Influenza (ED) Additional Instructions: Use your inhaler 2 puffs every 4 hr as needed. Continue to take your entire course of antibiotics as prescribed. You are influenza B virus positive. Return with worsening symptoms or any other concerns. Referrals: Maame Davis [Primary Care Provider] - 2-3 days, call for appt. Prescriptions: predniSONE 20 mg PO DAILY 4 Days tab
[2017-08-14 18:31] LABS: PLATELET COUNT 253 10^3/uL (150-400)
--- NOTE | 2017-08-14 19:12 | CPEKG ---
Heart Rate: 92 RR Interval: 652 P-R Interval: 140 QRSD Interval: 86 QT Interval: 340 QTC Interval: 421 P [place]: 70 QRS [place]: 64 T Wave [place]: 49 EKG Severity - NORMAL ECG - EKG Impression: SINUS RHYTHM Electronically Signed By: Dayna Quispe 14-Aug-2017 22:50:05
[2017-08-14] MEDS ORDERED: ALBUTEROL INH PREPACK MDI TAKEHOME ONE (19:22)
[2017-08-14 19:33] VITALS: BP 135/78; PULSE 92; RESP 18; TEMP 98.6; O2SAT 93
== END 2017-08-14 19:33 | disposition home or self-care (01) ==
DX: J10.1 Influenza due to other identified influenza virus with other respiratory manifestations (principal); Z87.891 Personal history of nicotine dependence
CPT/HCPCS: 96374; J2930

== ENCOUNTER 2017-11-09 08:55 | Day surgery (SDC) | payer MEDICAID ==
[2017-11-09] MEDS ORDERED: ceFAZolin 2 GM/DEXTROSE 100 ML IV ONE (09:22)
[2017-11-09] MEDS ORDERED: LR 1,000 ML IV ONE (09:23)
[2017-11-09] MEDS ORDERED: LIDOCAINE 1% 2 ML INJ ID PRN (09:23)
[2017-11-09] MEDS ORDERED: ceFAZolin 2 GM/SWFI 2 GM/20 ML SYR IVP ONE (09:30)
[2017-11-09] MEDS ORDERED: BACITRACIN ZINC 14.2 GM OINTTUBE TP ONE (09:40)
[2017-11-09] MEDS ORDERED: BUPIVACAINE 0.5% 30 ML SDV ONE (09:41)
[2017-11-09] MEDS ORDERED: BUPIVACAINE 0.25% 30 ML SDV ONE (09:41)
--- NOTE | 2017-11-09 10:04 | PDANEPAE ---
ANE History of Present Illness hydrocele ANE Past Medical History - Cardiovascular History Hx Hypertension: Yes Hx Arrhythmias: No Hx Chest Pain: No Hx Coronary Artery / Peripheral Vascular Disease: No Hx CHF / Valvular Disease: No Hx Palpitations: No - Pulmonary History Hx COPD: No Hx Asthma/Reactive Airway Disease: No Hx Recent Upper Respiratory Infection: Yes Hx Oxygen in Use at Home: No Hx Sleep Apnea: Yes Sleep Apnea Screening Result - Last Documented: Positive Pulmonary History Comment: COLLINS USES INSTRUCTED TO BRING DOS. PNEUMONIA 11/2016 FINISHED ANTIBIOTIC 12/28/2016 - Neurologic History Hx Cerebrovascular Accident: No Hx Seizures: No Hx Dementia: No - Endocrine History Hx Diabetes: No Hypothyroid: Yes Hyperthyroid: No Obesity: no Endocrine History Comment: HYPOTHYROID - Renal History Hx Renal Disorders: No - Liver History Hx Hepatic Disorders: Yes Hepatic History Comment: HEPATITIS C DX 1991 - Neurological & Psychiatric Hx Hx Neurological and Psychiatric Disorders: Yes Neurological / Psychiatric History Comment: ANXIETY/DEPRESSION - Cancer History Hx Cancer: No - Congenital Disorder History Hx Congenital Disorders: No - GI History GERD: moderate Hx Gastrointestinal Disorders: Yes Gastrointestinal History Comment: GERD - Other Health History Other Health History: MIXED HEARING LOSS. EUSTACHIAN TUBE DYSFUNCTION. RESIDUAL SWELLING RT KNEE POST SURG 07/2016. psoriatic arthritis - Chronic Pain History Chronic Pain: Yes (knees) - Surgical History Prior Surgeries: CARISSA TOTAL KNEE MOST RECENT 05/2016. RT LEG TENDON REPAIR 2015 POST DVT. TUBES. LT EYE ANE Review of Systems Review of Systems: - Exercise capacity METS (RN): 4 METS ANE Patient History - Allergies Allergies/Adverse Reactions: acetaminophen Allergy (Mild, Verified 10/25/17 16:25) Rash - Home Medications Home Medications: Bupropion HCl [Wellbutrin Xl] 12/30/16 [Last Taken 11/09/17] Levothyroxine [Synthroid 125 mcg (*)] 12/30/16 [Last Taken 11/09/17] Melatonin [Melatonin 5 mg] 12/30/16 [Last Taken 11/08/17] Omeprazole 12/30/16 [Last Taken 11/09/17] diphenhydrAMINE [Benadryl 50 MG (*)] 12/30/16 [Last Taken 11/08/17] oxyCODONE IR [Oxycodone Ir (*)] 12/30/16 [Last Taken 11/02/17] Monthly Inj For Arthritis 08/14/17 [Last Taken 10/10/17] predniSONE 10/25/17 [Last Taken 10/25/17] - Anes Hx Anes Hx: no prior problems - Smoking Hx Smoking Status: Former smoker - Alcohol Use Alcohol Use: Sober - Family Anes Hx Family Anes Hx: neg - N/A Family Hx Anesthesia Complications: none ANE Labs/Vital Signs - Vital Signs Height: 182.88 cm Weight: 99.79 kg ANE Physical Exam - Airway Neck exam: FROM Mallampati Score: Class 2 Mouth exam: dentures - Pulmonary Pulmonary: no respiratory distress, no rales or rhonchi, clear to auscultation - Cardiovascular Cardiovascular: regular rate and rhythym, no murmur, rub, or gallop - ASA Status ASA Status: III ANE Anesthesia Plan Anesthesia Plan: general endotracheal anesthesia Total IV Anesthesia: No
[2017-11-09] MEDS ORDERED: MIDAZOLAM 2 MG/2 ML VIAL IVP ONE (10:46)
[2017-11-09] MEDS ORDERED: MIDAZOLAM 2 MG/2 ML VIAL ONE (10:47)
[2017-11-09] MEDS ORDERED: fentaNYL 100 MCG/2 ML INJ ONE ×2 (10:50→12:45)
[2017-11-09] MEDS ORDERED: PROPOFOL 200 MG/20 ML VIAL ONE (10:50)
[2017-11-09] MEDS ORDERED: ROCURONIUM 50 MG/5 ML VIAL ONE (10:50)
[2017-11-09] MEDS ORDERED: ONDANSETRON 4 MG/2 ML VIAL ONE (10:50)
[2017-11-09] MEDS ORDERED: DEXAMETHASONE 4 MG/ML VIAL ONE (10:50)
[2017-11-09] MEDS ORDERED: LIDOCAINE 2% 5 ML SDV ONE (10:54)
[2017-11-09] MEDS ORDERED: PHENYLEPHRINE HCL 100 MCG/ML SYR ONE (10:58)
[2017-11-09] MEDS ORDERED: LR 500 ML IV PRN (11:38)
[2017-11-09] MEDS ORDERED: ONDANSETRON 4 MG/2 ML VIAL IVP PRN (11:38)
[2017-11-09] MEDS ORDERED: PROMETHAZINE HCL 25 MG/ML INJ IVP PRN (11:38)
[2017-11-09] MEDS ORDERED: NALOXONE HCL 0.4 MG/ML INJ IVP PRN (11:38)
[2017-11-09] MEDS ORDERED: epHEDrine SULFATE 10 MG/ML SYR IVP PRN (11:38)
[2017-11-09] MEDS ORDERED: PHENYLEPHRINE HCL 100 MCG/ML SYR IVP PRN (11:38)
[2017-11-09] MEDS ORDERED: oxyCODONE IR 5 MG TAB PO PRN (11:38)
[2017-11-09] MEDS ORDERED: SUGAMMADEX SODIUM 200 MG/2 ML VIAL IVP ONE (11:39)
--- NOTE | 2017-11-09 12:18 | PDHPUP ---
History & Physical Update H&P update statement: This history and physical update is based on an assessment of the patient which was completed after admission or registration (within 24 hours), but prior to the surgery/procedure. H&P update: no change in patient's condition since H&P completed
--- NOTE | 2017-11-09 12:24 | POSTOPPROG ---
Post Op Note Date of Operation: 11/09/17 Surgeon: Collin Wade (# [id number]) Anesthesia: LMA, Local (Specify) (0.5% Marcaine plain) Pre-op Diagnosis: Left hydrocele Post-op Diagnosis: Left hydrocele Procedure: Hydrocelectomy Findings: See op note Inf/Abcess present in the surg proc area at time of surgery?: No EBL: Minimal (< 10 cc) Complications: None Drains: [place] (1/" scrotal) Specimen(s): None
[2017-11-09] MEDS: fentaNYL 100 MCG/2 ML INJ IVP PRN ×2 (12:48→12:54)
--- NOTE | 2017-11-09 12:56 | POSTANESTH ---
Post Anesthetic Evaluation Cardiovascular Status: Normal, Stable Respiratory Status: Normal, Stable Level of Consciousness/Mental Status: Can Participate in Eval Pain Control: Adequate, Prn Tx Ordered Nausea/Vomiting Control: Adequate, Prn Tx Ordered Complications Possibly Related to Anesthesia: None Noted
--- NOTE | 2017-11-09 13:02 | GOP ---
[f rep st] OPERATIVE REPORT DATE OF OPERATION: 11/09/2017 SURGEON: Collin Wade MD ANESTHESIA: Laryngeal mask with local. PREOPERATIVE DIAGNOSIS: Symptomatic left hydrocele. POSTOPERATIVE DIAGNOSIS: Symptomatic left hydrocele. PROCEDURE PERFORMED: Left hydrocelectomy. FINDINGS: Unremarkable benign-appearing left hydrocele. SPECIMENS: None. ESTIMATED BLOOD LOSS: Minimal. INDICATIONS: This gentleman presented as an outpatient recently with a symptomatic left hydrocele and desires to undergo operative repair. The indications for the procedures as well as potential risks and complications were discussed with the patient preoperatively. He appeared to understand, his questions were answered, and he wished to proceed. Written informed surgical consent was thereafter obtained. DESCRIPTION OF PROCEDURE: The patient was brought to the operating room and administered laryngeal mask anesthesia. He was carefully placed in the supine position on the operating room table. The genital area was sterilely prepped with Betadine scrub and paint, and draped in the usual sterile fashion. A total of approximately 10 cc of 0.5% Marcaine without epinephrine was used for local anesthetic. An incision was then made along the anterior left hemiscrotum in a transverse fashion with a scalpel. This was carried through the scrotal dartos with electrocautery. The tunica vaginalis that contained the hydrocele was then delivered from the left hemiscrotal wound. The attached tunica vaginalis fibers were then sharply released with electrocautery. The hydrocele sac was then opened along the anterior aspect in a transverse fashion with electrocautery. The redundant portion of the sac was excised. It had a typical benign appearance to it. Therefore, it was not sent for pathology. The fluid was then evacuated, which also had a normal typical color for a hydrocele. The testis was examined and noted to be unremarkable. The appendix to the testis was cauterized. It was cauterized to prevent future torsion. The edges of the cut hydrocele sac were then oversewn with running 3-0 Vicryl suture. Meticulous hemostasis was confirmed at this point. The testis was delivered back within the left hemiscrotum in proper position and lie. A quarter-inch Sasser drain was placed dependently through a separate stab incision in the lower part of the left hemiscrotum and secured to the skin with 2-0 chromic suture. Once hemostasis had been confirmed, the scrotal incision was closed in 1 layer with a running 4-0 chromic suture. The incision was dressed with Xeroform gauze, while antibiotic ointment was placed around the Sasser drain site. Telfa was placed over the incision followed by 4 x 4 gauze fluffs. A scrotal support was placed on the patient. He was then awakened, transferred to his bed, then taken to the recovery room. He tolerated the procedure well overall. COMPLICATIONS: None. DISPOSITION: He was transferred to the recovery room in stable condition. /[id number]/MODL MTDD
[2017-11-09 13:04] VITALS: PULSE 75; RESP 17
[2017-11-09 13:09] VITALS: TEMP 97.7
[2017-11-09 13:11] VITALS: O2SAT 96
[2017-11-09 13:33] VITALS: BP 148/83
== END 2017-11-09 13:50 | disposition home or self-care (01) ==
LOC: FSGY 08:55
PROVIDERS: ATTEND Specialist
PROC: 0VB70ZZ Excision of Left Tunica Vaginalis, Open Approach (ICD-10-PCS; principal; 2017-11-09 10:45)
DX: N43.3 Hydrocele, unspecified (principal); E03.9 Hypothyroidism, unspecified; I10 Essential (primary) hypertension; G47.33 Obstructive sleep apnea (adult) (pediatric); K21.9 Gastro-esophageal reflux disease without esophagitis; Z87.891 Personal history of nicotine dependence; Z96.653 Presence of artificial knee joint, bilateral
CPT/HCPCS: J0690; J1100; J2250; J2370; J2405; J2704; J3010

== ENCOUNTER 2017-11-19 12:18 | Emergency (ER) | payer MEDICAID ==
--- NOTE | 2017-11-19 13:02 | EDPHY ---
HPI/HX/ROS/PE/MDM Narrative: CHIEF COMPLAINT: Left testicular pain. HPI: This patient is a 62 y/o male complaining of left testicular pain. He underwent surgery with Dr. Wade on 11/09/17 to remove a symptomatic hydrocele in the left testicle. He has had a routine postoperative course overall. Yesterday, he picked up bag of laundry at work and felt a sharp pain in the area of his left testicle. His postoperative instructions included a lifting restriction over 12 lbs. Since that time, he has had considerable pain in the area. He vomited last night due to pain. He has noted the left side of his scrotum appears more swollen. He denies any fever, dysuria, other pain, or other associated symptoms. REVIEW OF SYSTEMS: Aside from elements discussed in the HPI, a comprehensive 10-point review of systems was reviewed and is negative. PMH: Left hydrocelectomy 11/09/[address] Wade. Psoriatic arthritis, Hypothyroid, History of DVTs SOCIAL HISTORY: Lives in [place]. Employed. PCP: Dr. Davis. Urologist: Dr. Wade. PHYSICAL EXAM: General:Patient is alert, in no acute distress. ENT:Eyes are normal to inspection. ENT inspection normal. Respiratory:No respiratory distress. Breath sounds normal bilaterally. Cardiovascular: Regular rate and rhythm. Strong peripheral pulses. Normal cap refill. Abdomen:The abdomen is nontender to palpation. There are no peritoneal signs. There are normal bowel sounds. Genitourinary: Scrotum diffusely swollen and erythematous, more on the left. Horizontal incision w/discharge from wound. Skin: Normal color. No rash. Warm and dry. Extremities: Normal appearance. Full range of motion. Neuro: Oriented x3. Normal motor function. Normal sensory function. ED Course: 62 y/o male s/p left hydrocelectomy 11/09/[address] Wade presents with left testicular pain. The scrotum is diffusely swollen and erythematous, more on the left, and there is discharge from the horizontal surgical incision to the left side. Plan for labs including CBC, chemistries, lactic acid. Plan for testicular ultrasound. US: Likely bleed into scrotum with hematocrit-fluid level. 1530: I consulted Klaudia Solorzano from Urology and described wound and US findings. She recommends discharge home on Keflex and they will see in the office tomorrow. - Data Points Laboratory Results: Laboratory Results 11/19/17 13:15 11/19/17 13:15 11/19/1718 11/19/17 13:15 13:15 13:15 WBC 13.55 10^3/uL H 10^3/uL (3.80-9.50) RBC 4.68 10^6/uL 10^6/uL (4.40-6.38) Hgb 13.6 g/dL L g/dL (13.7-17.5) Hct 41.4 % % (40.0-51.0) MCV 88.5 fL fL (81.5-99.8) MCH 29.1 pg pg (27.9-34.1) MCHC 32.9 g/dL g/dL (32.4-36.7) RDW 13.8 % % (11.5-15.2) Plt Count 327 10^3/uL 10^3/uL (150-400) MPV 9.1 fL fL (8.7-11.7) Neut % (Auto) 76.1 % H % (39.3-74.2) Lymph % (Auto) 9.3 % L % (15.0-45.0) [place] % (Auto) 11.5 % % (4.5-13.0) Eos % (Auto) 2.1 % % (0.6-7.6) Baso % (Auto) 0.6 % % (0.3-1.7) Nucleat RBC Rel Count 0.0 % % (0.0-0.2) Absolute Neuts (auto) 10.30 10^3/uL H 10^3/uL (1.70-6.50) Absolute Lymphs (auto) 1.26 10^3/uL 10^3/uL (1.00-3.00) Absolute Monos (auto) 1.56 10^3/uL H 10^3/uL (0.30-0.80) Absolute Eos (auto) 0.29 10^3/uL 10^3/uL (0.03-0.40) Absolute Basos (auto) 0.08 10^3/uL 10^3/uL (0.02-0.10) Absolute Nucleated RBC 0.00 10^3/uL 10^3/uL (0-0.01) Immature Gran % 0.4 % % (0.0-1.1) Immature Gran # 0.06 10^3/uL 10^3/uL (0.00-0.10) VBG Lactic Acid 1.4 mmol/L mmol/L (0.7-2.1) Sodium 139 mEq/L mEq/L (135-145) Potassium 4.5 mEq/L mEq/L (3.5-5.2) Chloride 103 mEq/L mEq/L (97-110) Carbon Dioxide 27 mEq/l mEq/l (22-31) Anion Gap 9 mEq/L mEq/L (8-16) BUN 19 mg/dL mg/dL (7-23) Creatinine 0.9 mg/dL mg/dL (0.7-1.3) Estimated GFR > 60 Glucose 113 mg/dL H mg/dL (70-100) Calcium 9.1 mg/dL mg/dL (8.5-10.4) General Time Seen by Provider: 11/19/17 12:56 Initial Vital Signs: Initial Vital Signs Temperature (C) 36.8 C 11/19/17 12:22 Heart Rate 94 11/19/17 12:22 Respiratory Rate 20 11/19/17 12:22 Blood Pressure 126/82 H 11/19/17 12:22 O2 Sat (%) 95 11/19/17 12:22 O2 Delivery Mode Room Air Allergies/Adverse Reactions: acetaminophen Allergy (Mild, Verified 11/19/17 12:21) Rash Home Medications: Medication Instructions Recorded Bupropion HCl [Wellbutrin Xl] 12/30/16 Levothyroxine [Synthroid 125 mcg 12/30/16 (*)] Melatonin [Melatonin 5 mg] 12/30/16 Omeprazole 12/30/16 diphenhydrAMINE [Benadryl 50 MG 12/30/16 (*)] oxyCODONE IR [Oxycodone Ir (*)] 12/30/16 Monthly Inj For Arthritis 08/14/17 predniSONE 10/25/17 Cephalexin [Keflex] 500 mg PO Q6H #28 cap 11/19/17 Departure - Departure Disposition: Home, Routine, Self-Care Clinical Impression: Scrotal hematoma Condition: Good Instructions: Additional Information Additional Instructions: Keep scrotum elevated. Call Dr. Novak office 1st thing tomorrow morning for further care. Return to the emergency department for severe pain, bleeding, inability to urinate or fever. Referrals: Maame Davis [Primary Care Provider] - As per Instructions Collin Wade MD [Medical Doctor] - As per Instructions Prescriptions: Cephalexin [Keflex] 500 mg PO Q6H #28 cap Report Scribed for: Guillermo Godfrey Report Scribed by: Noemi Bolton Date of Report: 11/19/17 Time of Report: 13:01 Physician Review and Approval Statement: Portions of this note were transcribed by an ED scribe. I personally performed the history, physical exam, and medical decision making; and confirm the accuracy of the information in the transcribed note.
[2017-11-19 13:31] LABS: PLATELET COUNT 327 10^3/uL (150-400)
[2017-11-19 14:38] VITALS: PULSE 81
[2017-11-19 16:02] VITALS: BP 133/78; RESP 18; TEMP 97.9; O2SAT 98
== END 2017-11-19 16:02 | disposition home or self-care (01) ==
DX: N99.840 Postprocedural hematoma of a genitourinary system organ or structure following a genitourinary system procedure (principal)

== ENCOUNTER 2018-04-21 18:51 | Emergency (ER) | payer MEDICAID ==
[2018-04-21 18:58] VITALS: BP 169/98
[2018-04-21] MEDS ORDERED: IBUPROFEN 600 MG TAB PO ONE (19:14)
--- NOTE | 2018-04-21 19:14 | EDPHY ---
H & P Time Seen by Provider: 04/21/18 18:59 HPI/ROS: CHIEF COMPLAINT: Burn left index finger HISTORY OF PRESENT ILLNESS: 62-year-old male with up-to-date tetanus grabbed a hot kate this evening sustaining a superficial thickness burn to his left index finger palmar aspect proximal phalanx. Complaining of pain to same location. No paresthesia. No immersion injury. Occurred shortly prior to arrival. He has not taken any analgesia. REVIEW OF SYSTEMS: 10 systems reviewed and negative with the exception of illness mentioned in the history of present illness PHYSICAL EXAM (Prior to examination, patient consented to physical exam, hands were washed and my usual and customary physical exam procedures followed) 1) GENERAL: Well-developed, well-nourished, alert and oriented. Appears to be in no acute distress. 2) HEAD: Normocephalic 3) HEENT: sclera anicteric 4) LUNGS: Breathing comfortably. 5) SKIN: Left index finger proximal phalanx palmar aspect superficial thickness burn non circumferential. No blistering. FDP FDS function intact. 6) MUSCULOSKELETAL: No shortening or malrotation. 7) NEUROLOGIC: Full sensation distally Smoking Status: Former smoker Constitutional: Initial Vital Signs Temperature (C) 36.8 C 04/21/18 18:55 Heart Rate 90 04/21/18 18:55 Respiratory Rate 18 04/21/18 18:55 Blood Pressure 169/98 H 04/21/18 18:55 O2 Sat (%) 94 04/21/18 18:55 O2 Delivery Mode Room Air Allergies/Adverse Reactions: acetaminophen Allergy (Mild, Verified 04/21/18 18:54) Rash Home Medications: Medication Instructions Recorded Bupropion HCl [Wellbutrin Xl] 12/30/16 Levothyroxine [Synthroid 125 mcg 12/30/16 (*)] Melatonin [Melatonin 5 mg] 12/30/16 Omeprazole 12/30/16 diphenhydrAMINE [Benadryl 50 MG 12/30/16 (*)] oxyCODONE IR [Oxycodone Ir (*)] 12/30/16 Monthly Inj For Arthritis 08/14/17 predniSONE 10/25/17 MDM/Departure - [facility] ED Course/Re-evaluation: Patient I discussed supportive therapy, analgesia. This is a non circumferential injury. This is a superficial thickness burn with no flexor deficits. No signs of infection. Discussed ibuprofen and Tylenol for analgesia , elevation. Discussed possibility of long-term contracture issues which I think are less than likely in this patient given the minor extent of injury. Nonetheless I recommend he follow up with Hand surgery for long-term mobility and monitoring. I saw this patient independently based on established practice protocols. Care of patient under supervision of secondary supervising physician Dr Evans . Patient provided with my usual and customary burn wound precautions as well as my usual and customary NSAID precautions. - Depart Disposition: Home, Routine, Self-Care Clinical Impression: Superficial burn of left index finger Condition: Good Instructions: Superficial Burn (ED) Additional Instructions: Adult Pain & Fever Control: We recommend Acetaminophen (Tylenol) and Ibuprofen (Motrin,Advil) for pain and fever control. When fever is high or pain severe, both drugs can be used at the same time, but at different intervals. Please note the time differences. Your dose is: Acetaminophen 650mg every 4 to 6 hours Ibuprofen 600mg every 6 hours with food OR Note: do not take Acetaminophen with Hydrocodone (Vicodin, Lortab) or Oycodone (Percocet). These medications also contain Acetaminophen. No more than 3000mg of Acetaminophen should be taken in 24 hours (for an adult). Referrals: Maame Davis [Primary Care Provider] - 2-3 days, call for appt. Trev Lucas MD [Medical Doctor] - As per Instructions
== END 2018-04-21 19:24 | disposition home or self-care (01) ==
DX: T23.122A Burn of first degree of single left finger (nail) except thumb, initial encounter (principal); X15.3XXA Contact with hot saucepan or skillet, initial encounter; T31.0 Burns involving less than 10% of body surface; Z87.891 Personal history of nicotine dependence

== ENCOUNTER 2018-08-19 12:00 | Emergency (ER) | payer MEDICAID ==
--- NOTE | 2018-08-19 12:36 | EDPHY ---
HPI/HX/ROS/PE/MDM Narrative: CHIEF COMPLAINT: "I'm real dizzy for 2 days now" HPI: The patient is a 62 y/o male with prediabetes and psoriatic arthritis complaining of persistent spinning dizziness for the last 2 days. Symptoms are worse with head movement and walking and alleviated somewhat while lying down. He's had similar symptoms previously when he had pneumonia. He is currently on 20mg QD prednisone that he has been titrating down. He denies nausea, vomiting, dyspnea, sore throat, ear pain or discharge, abdominal pain, cough, fever. He has known perforated left tympanic membrane and a tube in his right tympanic membrane. REVIEW OF SYSTEMS: A comprehensive 10 system review of systems is otherwise negative aside from elements mentioned in the history of present illness. PMH: Left hydrocelectomy 11/09/[address] Wade; psoriatic arthritis; hypothyroidism; DVTs; knee replacements; hearing loss. SOCIAL HISTORY: Employed at [employer]. Denies alcohol or illicit drug use. Prior medical records reviewed including ED visit 11/19/17 for testicular pain. PHYSICAL EXAM: General:Patient is alert, in no acute distress. ENT:Eyes are normal to inspection. ENT inspection left TM perforated, tube in TM on the right. Neck: Normal inspection. Full range of motion. Respiratory:No respiratory distress. Breath sounds normal bilaterally. Cardiovascular: Regular rate and rhythm. Strong peripheral pulses. Normal cap refill. Abdomen:The abdomen is nontender to palpation. There are no peritoneal signs. Back: Normal to inspection. No tenderness to palpation. Skin: Normal color. No rash. Warm and dry. Extremities: Normal appearance. Full range of motion. Neuro: Oriented x3. Normal motor function. Normal sensory function. ED Course: This is a 62 y/o male with a history of prediabetes and psoriatic arthritis who presents with a 2-day history of room-spinning dizziness that is worse with head movement and walking. He has a nonfocal neuro exam. Baseline TM abnormalities noted. Suspect positional vertigo. Plan for IV, labs, EKG. 50mg PO Meclizine ordered. The 12 lead EKG was interpreted by myself. Sinus mechanism. See hard copy and/ or "tracemaster" electronic copy for interpretation. Labs unremarkable. Patient is feeling improved and has been able to walk through the department. He feels ready for discharge home. Script for Meclizine and referral to ENT provided. Return precautions discussed. He is comfortable with this plan. MDM: This patient presents with signs and symptoms consistent with peripheral vertigo. There are no signs of cerebellar disease. The patient has a history of similar episodes and has known perforated TM, already with plan to follow-up with ENT. I discussed options with him and he feels comfortable going home with a trial of meclizine. We discussed strict return precautions. - Data Points Laboratory Results: Laboratory Results 08/19/18 12:45 08/19/18 12:45 08/19/18 08/19/18 12:45 12:45 WBC 7.75 10^3/uL 10^3/uL (3.80-9.50) RBC 5.10 10^6/uL 10^6/uL (4.40-6.38) Hgb 15.3 g/dL g/dL (13.7-17.5) Hct 45.8 % % (40.0-51.0) MCV 89.8 fL fL (81.5-99.8) MCH 30.0 pg pg (27.9-34.1) MCHC 33.4 g/dL g/dL (32.4-36.7) RDW 13.9 % % (11.5-15.2) Plt Count 355 10^3/uL 10^3/uL (150-400) MPV 9.2 fL fL (8.7-11.7) Neut % (Auto) 84.4 % H % (39.3-74.2) Lymph % (Auto) 10.5 % L % (15.0-45.0) [place] % (Auto) 4.1 % L % (4.5-13.0) Eos % (Auto) 0.1 % L % (0.6-7.6) Baso % (Auto) 0.5 % % (0.3-1.7) Nucleat RBC Rel Count 0.0 % % (0.0-0.2) Absolute Neuts (auto) 6.54 10^3/uL H 10^3/uL (1.70-6.50) Absolute Lymphs (auto) 0.81 10^3/uL L 10^3/uL (1.00-3.00) Absolute Monos (auto) 0.32 10^3/uL 10^3/uL (0.30-0.80) Absolute Eos (auto) 0.01 10^3/uL L 10^3/uL (0.03-0.40) Absolute Basos (auto) 0.04 10^3/uL 10^3/uL (0.02-0.10) Absolute Nucleated RBC 0.00 10^3/uL 10^3/uL (0-0.01) Immature Gran % 0.4 % % (0.0-1.1) Immature Gran # 0.03 10^3/uL 10^3/uL (0.00-0.10) Sodium 138 mEq/L mEq/L (135-145) Potassium 4.4 mEq/L mEq/L (3.5-5.2) Chloride 103 mEq/L mEq/L (97-110) Carbon Dioxide 26 mEq/l mEq/l (22-31) Anion Gap 9 mEq/L mEq/L (6-14) BUN 23 mg/dL mg/dL (7-23) Creatinine 1.0 mg/dL mg/dL (0.7-1.3) Estimated GFR > 60 Glucose 164 mg/dL H mg/dL (70-100) Calcium 9.5 mg/dL mg/dL (8.5-10.4) Medications Given: Discontinued Medications Meclizine HCl (Meclizine Hcl) 50 mg PO EDNOW ONE Stop: 08/19/18 13:35 Last Admin: 08/19/18 13:56 Dose: 50 mg General Time Seen by Provider: 08/19/18 12:25 Initial Vital Signs: Initial Vital Signs Temperature (C) 36.7 C 08/19/18 12:01 Heart Rate 84 08/19/18 12:01 Respiratory Rate 18 08/19/18 12:01 Blood Pressure 128/72 H 08/19/18 12:01 O2 Sat (%) 97 08/19/18 12:01 O2 Delivery Mode Room Air Allergies/Adverse Reactions: acetaminophen Allergy (Mild, Verified 08/19/18 12:00) Rash Home Medications: Medication Instructions Recorded Aspirin EC [Aspirin EC 81 mg (*)] 81 mg PO DAILY 08/19/18 Furosemide [Lasix 20 MG (*)] 20 mg PO 08/19/18 Levothyroxine [Synthroid 100 mcg 100 mcg PO DAILY06 08/19/18 (*)] Losartan Potassium [Cozaar 25 mg 25 mg PO 08/19/18 (*)] Meclizine HCl [Meclizine HCl 25 mg 25 - 50 mg PO BID PRN #14 tab 08/19/18 (RX,OTC)] Shot For Psoriatic Arthritis 08/19/18 predniSONE 5 mg PO 08/19/18 Departure - Departure Disposition: Home, Routine, Self-Care Clinical Impression: Vertigo Condition: Good Instructions: Meclizine (By mouth), Vertigo (ED) Additional Instructions: 1. Use Meclizine as directed on the packaging as needed for dizziness over the next few days. 2. Follow up with ENT in the next week. I recommend calling tomorrow morning to schedule this appointment. 3. Return to the ED for any worsening of condition. Referrals: Maame Davis [Primary Care Provider] - As per Instructions Tomas Rhodes MD [Medical Doctor] - As per Instructions Stand Alone Forms: Work Excuse Prescriptions: Meclizine HCl [Meclizine HCl 25 mg (RX,OTC)] 25 - 50 mg PO BID PRN #14 tab PRN Reason: vertigo Report Scribed for: Guillermo Godfrey Report Scribed by: Miladis Montague Date of Report: 08/19/18 Time of Report: 12:30 Physician Review and Approval Statement: Portions of this note were transcribed by an ED scribe. I personally performed the history, physical exam, and medical decision making; and confirm the accuracy of the information in the transcribed note.
[2018-08-19 12:56] LABS: PLATELET COUNT 355 10^3/uL (150-400)
[2018-08-19] MEDS ORDERED: MECLIZINE HCL 25 MG TAB PO ONE (13:34)
[2018-08-19 14:52] VITALS: BP 135/80
--- NOTE | 2018-08-19 14:52 | CPEKG ---
Test Reason : OPEN Blood Pressure : / mmHG Vent. Rate : 093 BPM Atrial Rate : 092 BPM P-R Int : 131 ms QRS Dur : 083 ms QT Int : 332 ms P-R-T Axes : 059 052 058 degrees QTc Int : 413 ms Sinus rhythm Confirmed by Guillermo Godfrey ([id number]) on 08/19/2018 2:51:44 PM Referred By: Confirmed By:Guillermo Godfrey
== END 2018-08-19 15:02 | disposition home or self-care (01) ==
DX: R42 Dizziness and giddiness (principal)

== ENCOUNTER 2018-08-24 15:48 | Emergency (ER) | payer MEDICAID ==
--- NOTE | 2018-08-24 15:59 | EDPHY ---
H & P Stated Complaint: chills paris n/v subjective fever/seen dx vertigo 08/19 Time Seen by Provider: 08/24/18 15:58 - Personal History Current Tetanus Diphtheria and Acellular Pertussis (TDAP): Yes Tetanus Vaccine Date: < 10 years - Medical/Surgical History Hx Asthma: No Hx Chronic Respiratory Disease: No Hx Diabetes: No Hx Cardiac Disease: No Hx Renal Disease: No Hx Cirrhosis: No Hx Alcoholism: No Hx HIV/AIDS: No Hx Splenectomy or Spleen Trauma: No Other PMH: psoriatic arthritis, hypothyroid, PS, DVTs. testicular cyst. " holes in L ear drum" - Social History Smoking Status: Former smoker Constitutional: Initial Vital Signs Temperature (C) 36.7 C 08/24/18 15:52 Heart Rate 104 H 08/24/18 15:52 Respiratory Rate 17 08/24/18 15:52 Blood Pressure 126/85 H 08/24/18 15:52 O2 Sat (%) 95 08/24/18 15:52 O2 Delivery Mode Room Air Allergies/Adverse Reactions: acetaminophen Allergy (Mild, Verified 08/24/18 15:51) Rash Home Medications: Medication Instructions Recorded Aspirin EC [Aspirin EC 81 mg (*)] 81 mg PO DAILY 08/19/18 Furosemide [Lasix 20 MG (*)] 20 mg PO 08/19/18 Levothyroxine [Synthroid 100 mcg 100 mcg PO DAILY06 08/19/18 (*)] Losartan Potassium [Cozaar 25 mg 25 mg PO 08/19/18 (*)] Meclizine HCl [Meclizine HCl 25 mg 25 - 50 mg PO BID PRN #14 tab 08/19/18 (RX,OTC)] Shot For Psoriatic Arthritis 08/19/18 Albuterol [Proventil Inhaler] 1 - 2 puffs IH Q4 #1 mdi 08/24/18 Azithromycin [Zithromax] 250 mg PO DAILY #6 tab 08/24/18 Medical Decision Making - Diagnostics Imaging Results: Imaging Impressions Chest X-Ray 08/24/18 16:24 Impression: Parenchymal scarring left lower lobe similar to previous exam. No acute cardiopulmonary abnormality identified.. Imaging: I viewed and interpreted images myself ED Course/Re-evaluation: CHIEF COMPLAINT: Dizziness, chills, cough HISTORY OF PRESENT ILLNESS: The patient is an immunocompromised 63 y/o male with a history of psoriatic arthritis complaining of dizziness for the last 6 days worsening today with new symptoms. He was evaluated here on Monday for dizziness and improved after Meclizine. This did not last and he has continued to feel dizzy. Today he went to work and in addition to dizziness he developed myalgias, subjective fever and chills, fatigue, nausea with one episode of vomiting, and a productive cough. He mentions he just finished a burst of prednisone for his psoriatic arthritis and that "prednisone gives me pneumonia. " No urinary symptoms. REVIEW OF SYSTEMS: A comprehensive 10 system review of systems is otherwise negative aside from elements mentioned in the history of present illness and medical decision making. PHYSICAL EXAM: HR, BP, O2 Sat, RR. Temp noted General Appearance: Alert, well hydrated, appropriate, and non-toxic appearing. Head: Atraumatic without scalp tenderness or obvious injury Eyes: Pupils equal, round, reactive to light and accommodation, EOMI, no trauma , no injection. Nose: Atraumatic, no rhinorrhea, clear. Throat: Mucus membranes moist. Neck: Supple, nontender, no lymphadenopathy. Respiratory: No retractions, no distress, no wheezes, and no accessory muscle use. Lungs are clear to auscultation bilaterally. Cardiovascular: Regular rate and rhythm, no murmurs, rubs, or gallops. Good capillary refill all extremities. Gastrointestinal: Abdomen is soft, nontender, non-distended, no masses, no rebound, no guarding, no peritoneal signs. Musculoskeletal: Normal active ROM of all extremities, atraumatic. Neurological: Alert, appropriate, and interactive. The patient has non-focal cranial nerves, motor, sensory, and cerebellar exam. Skin: No rashes, good turgor, no nodules on palpation. Past medical history: Psoriatic arthritis, hypothyroidism, DVTs, hearing loss Past surgical history: Left hydrocelectomy 11/09/17 Family history: Noncontributory Social history: Employed. Denies alcohol or illicit drug use. Prior medical records reviewed including ED visit 08/19/18 for dizziness. DIAGNOSTICS/PROCEDURES/CRITICAL CARE TIME: Chest x-ray: Bronchitis, no clear infiltrate, similar to prior DIFFERENTIAL DIAGNOSIS: The differential diagnosis for the patient's fever included but was not limited to pneumonia, urinary tract infection, viral syndrome, meningitis, and sepsis. MEDICAL DECISION MAKING: This is a 63 y/o male with psoriatic arthritis who presents with a 6-day history of dizziness now associated with myalgias, subjective fever, chills, and cough. His exam is unremarkable. Plan for chest x-ray, flu swab, and symptomatic management. 1mg PO Ativan, 4mg PO Zofran, and duo neb ordered. Reassessed patient and discussed findings. He is feeling improved. His chest x- ray shows bronchitis and combined with his symptoms and history, this could indicate an early pneumonia. Due to immunosuppressed status, recommend treatment with azithromycin in addition to symptomatic treatment with albuterol and Hycodan syrup. He is comfortable with this plan. Return precautions discussed. - Data Points Laboratory Results: 08/24/18 16:48 Nasal Influenza A PCR NEGATIVE FOR FLU A (NEGATIVE) Nasal Influenza B PCR NEGATIVE FOR FLU B (NEGATIVE) Medications Given: Discontinued Medications Albuterol/Ipratropium (Duoneb) 3 ml IH EDNOW ONE Stop: 08/24/18 16:25 Last Admin: 08/24/18 16:46 Dose: 3 ml Lorazepam (Ativan) 1 mg PO EDNOW ONE Stop: 08/24/18 16:25 Last Admin: 08/24/18 16:46 Dose: 1 mg Ondansetron HCl (Zofran Odt) 4 mg PO EDNOW ONE Stop: 08/24/18 16:25 Last Admin: 08/24/18 16:45 Dose: 4 mg Departure - Departure Disposition: Home, Routine, Self-Care Clinical Impression: Bronchitis Pneumonia Qualifiers: Pneumonia type: due to unspecified organism Laterality: unspecified laterality Lung location: unspecified part of lung Qualified Code(s): J18.9 - Pneumonia, unspecified organism Condition: Good Instructions: Azithromycin (By mouth), Acute Bronchitis (ED), Pneumonia (ED) Additional Instructions: 1. Take azithromycin as prescribed for likely early pneumonia. Be sure to complete the entire prescription. 2. Use albuterol inhaler as prescribed for cough. 3. Follow up with your primary care provider for unimproved symptoms over the next few days. 4. Return to the ED for worsening of condition. Referrals: Maame Davis [Primary Care Provider] - As per Instructions Stand Alone Forms: Work Excuse Prescriptions: Albuterol [Proventil Inhaler] 1 - 2 puffs IH Q4 #1 mdi Azithromycin [Zithromax] 250 mg PO DAILY #6 tab Report Scribed for: Og Maurer Report Scribed by: Miladis Montague Date of Report: 08/24/18 Time of Report: 16:23
[2018-08-24] MEDS ORDERED: LORazepam 1 MG TAB PO ONE (16:24)
[2018-08-24] MEDS ORDERED: IPRATROPIUM/ALBUTEROL 3 ML DEYVIAL IH ONE (16:24)
[2018-08-24] MEDS ORDERED: ONDANSETRON DISINTEGRATING 4 MG TAB PO ONE (16:24)
[2018-08-24 17:59] VITALS: BP 123/67
== END 2018-08-24 17:57 | disposition home or self-care (01) ==
DX: J18.9 Pneumonia, unspecified organism (principal); D84.9 Immunodeficiency, unspecified; L40.50 Arthropathic psoriasis, unspecified; Z87.891 Personal history of nicotine dependence

== ENCOUNTER → 2018-09-12 | Outpatient (CLI) | payer MEDICAID | LOC: FIMAGING 12:17 | PROVIDERS: ATTEND Family Medicine | DX: M79.661 Pain in right lower leg (principal) ==

== ENCOUNTER → 2018-10-06 | Outpatient (CLI) | payer MEDICAID | LOC: SBRMNEURO 21:00 | PROVIDERS: ATTEND Psychiatry & Neurology Sleep Medicine | DX: G47.33 Obstructive sleep apnea (adult) (pediatric) (principal); G47.63 Sleep related bruxism ==